=== PATIENT | female | born 1960 | race Caucasian/White ===

== ENCOUNTER 2018-12-22 17:35 | Emergency (ER) | payer MEDICAID ==
[~2018-12-22] VITALS: Ht 160 cm; Wt 60.9 kg
[2018-12-22 18:11] LABS: GLUCOSE,POINT OF CARE 157 MG/DL (70-110)
[2018-12-22] MEDS ORDERED: SODIUM CHLORIDE 0.9% 1,000 ML IV ONE (18:45)
[2018-12-22] MEDS ORDERED: ACETAMINOPHEN 500 MG TABLET PO ONE (18:45)
[2018-12-22 19:03] LABS: BASOPHILS % (AUTO) 0.8 % (0.0-2.0); EOSINOPHILS % (AUTO) 2.8 % (1.0-6.0); HEMATOCRIT 27.7 % (36-46); HEMOGLOBIN 9.5 g/dL (12.0-16.0); LYMPHOCYTES # (AUTO) 2.2 K/uL (1.0-4.8); LYMPHOCYTES % (AUTO) 28.4 % (22.0-44.0); MEAN CORPUSCULAR HGB CONC 34.2 G/dL (31.0-37.0); MEAN CORPUSCULAR VOLUME 91 fL (80-100); MONOCYTES # (AUTO) 0.7 K/uL (0.1-1.0); MONOCYTES % (AUTO) 8.4 % (2.0-9.0); NEUTROPHILS # (AUTO) 4.7 K/uL (1.8-7.7); NEUTROPHILS % (AUTO) 59.6 % (40.0-70.0); PLATELET COUNT (AUTO) 268 K/uL (150-450); RED BLOOD CELL COUNT(AUTO) 3.06 MIL/uL (4.00-5.20); RED CELL DISTRIBUTION WIDTH 13.1 % (11.5-14.5)
[2018-12-22 19:19] LABS: CALCIUM, TOTAL 8.8 mg/dL (8.8-10.5); CREATININE 1.82 mg/dL (0.60-1.30); POTASSIUM 5.3 mmol/L (3.5-5.1)
[2018-12-22 19:27] LABS: ALBUMIN 2.7 g/dL (3.4-5.0); BILIRUBIN,TOTAL 0.3 mg/dL (0.1-1.0); TOTAL PROTEIN, SERUM 6.7 g/dL (6.4-8.2)
[2018-12-22 19:33] LABS: APPEARANCE,URINE CLEAR (CLEAR); BILIRUBIN,URINE NEGATIVE (NEGATIVE); GLUCOSE, URINE (UA) NEGATIVE (NEGATIVE); KETONES,URINE NEGATIVE (NEGATIVE); LEUKOCYTE ESTERASE ,URINE TRACE (NEGATIVE); NITRATE,URINE NEGATIVE (NEGATIVE); OCCULT BLOOD,URINE MODERATE (NEGATIVE); PROTEIN,URINE SEE CONFIRM (NEGATIVE); UROBILINOGEN,URINE 0.2 mg/dL (<=1.0)
[2018-12-22] MEDS ORDERED: IOVERSOL 350 MG/ML 150 ML VIAL ONE (19:44)
[2018-12-22] MEDS ORDERED: SODIUM CHLORIDE 0.9% 100 ML ONE (19:45)
[2018-12-22 20:11] LABS: SULFOSALICYLIC ACID,URINE 4+ (Negative)
[2018-12-22 20:12] LABS: BACTERIA,URINE None Seen /HPF (None Seen); SQUAMOUS EPITHELIAL CELL,UR Few /LPF (None Seen)
[2018-12-22 21:15] VITALS: BP 157/82
== END 2018-12-22 21:47 | disposition home or self-care (01) ==
LOC: EMS 17:36
DX: N28.9 Disorder of kidney and ureter, unspecified (principal); G47.00 Insomnia, unspecified; F17.210 Nicotine dependence, cigarettes, uncomplicated; E11.9 Type 2 diabetes mellitus without complications
CPT/HCPCS: 36415; 71260; 74177; 76700; 80053; 81001; 82962; 83690; 83880; 84484; 85025; 93005; 99285; 99406; J7030; J7050; Q9967; 72193; 74160

== ENCOUNTER 2021-05-06 19:47 | Emergency (ER) | payer MEDICAID ==
[~2021-05-06] VITALS: Ht 160 cm; Wt 77.3 kg
[2021-05-06 20:15] LABS: COVID AG,FIA SOURCE NASOPHARYNGEAL
[2021-05-06 21:02] LABS: BASOPHILS % (AUTO) 0.6 % (0.0-2.0); EOSINOPHILS % (AUTO) 5.9 % (1.0-6.0); HEMATOCRIT 33.7 % (36-46); HEMOGLOBIN 11.4 g/dL (12.0-16.0); LYMPHOCYTES % (AUTO) 24.5 % (22.0-44.0); MEAN CORPUSCULAR HEMOGLOBIN 29.8 pg (26.0-34.0); MEAN CORPUSCULAR VOLUME 88 fL (80-100); MONOCYTES # (AUTO) 0.9 K/uL (0.1-1.0); MONOCYTES % (AUTO) 10.7 % (2.0-9.0); NEUTROPHILS # (AUTO) 4.7 K/uL (1.8-7.7); NEUTROPHILS % (AUTO) 58.3 % (40.0-70.0); PLATELET COUNT (AUTO) 251 K/uL (150-450); RED BLOOD CELL COUNT(AUTO) 3.83 MIL/uL (4.00-5.20)
[2021-05-06 21:11] LABS: GLUCOMETER DEV NAME(LOC) ERT.5; GLUCOSE,POINT OF CARE 192 MG/DL (70-110)
[2021-05-06 21:15] LABS: CALCIUM, TOTAL 8.1 mg/dL (8.8-10.5); CREATININE 11.14 mg/dL (0.60-1.30); POTASSIUM 3.2 mmol/L (3.5-5.1)
[2021-05-06 21:21] LABS: ALBUMIN 3.1 g/dL (3.4-5.0); BILIRUBIN,TOTAL 0.7 mg/dL (0.1-1.0); TOTAL PROTEIN, SERUM 8.1 g/dL (6.4-8.2)
[2021-05-06 21:44] VITALS: BP 145/92
[2021-05-06] MEDS ORDERED: KETOROLAC TROMETHAMINE 30 MG/ML VIAL IVP ONE (22:00)
[2021-05-06] MEDS ORDERED: SODIUM CHLORIDE 0.9% 1,000 ML IV ONE (22:00)
[2021-05-06] MEDS ORDERED: ONDANSETRON HCL 4 MG/2 ML VIAL IVP ONE (22:00)
[2021-05-06] MEDS ORDERED: ONDANSETRON HCL 4 MG TABLET PO ONE (22:30)
[2021-05-06] MEDS ORDERED: ACETAMINOPHEN 500 MG TABLET PO ONE (22:30)
[2021-05-06] MEDS ORDERED: ONDA-104 PO (23:44)
== END 2021-05-07 00:07 | disposition home or self-care (01) ==
LOC: EMS 19:48
DX: U07.1 COVID-19 (principal); E11.9 Type 2 diabetes mellitus without complications; Z79.899 Other long term (current) drug therapy
CPT/HCPCS: 36415; 71045; 80053; 82962; 83690; 84484; 85025; 87426; 93005; 99285; C9803; Q0162; U0003

== ENCOUNTER 2021-05-19 15:02 | Inpatient (IN) | payer MEDICAID ==
[~2021-05-19] VITALS: Ht 160 cm; Wt 94.0 kg
[~2021-05-19 15:02] MED LIST: ONDA-104 PO
[2021-05-19 16:05] LABS: COVID AG,FIA SOURCE NASOPHARYNGEAL
[2021-05-19 16:12] LABS: BASOPHILS % (AUTO) 0.2 % (0.0-2.0); EOSINOPHILS % (AUTO) 2.9 % (1.0-6.0); HEMOGLOBIN 10.1 g/dL (12.0-16.0); LYMPHOCYTES # (AUTO) 4.3 K/uL (1.0-4.8); LYMPHOCYTES % (AUTO) 28.9 % (22.0-44.0); MEAN CORPUSCULAR HGB CONC 33.8 G/dL (31.0-37.0); MEAN CORPUSCULAR VOLUME 86 fL (80-100); MONOCYTES # (AUTO) 1.2 K/uL (0.1-1.0); MONOCYTES % (AUTO) 8.2 % (2.0-9.0); NEUTROPHILS # (AUTO) 8.9 K/uL (1.8-7.7); NEUTROPHILS % (AUTO) 59.8 % (40.0-70.0); PLATELET COUNT (AUTO) 419 K/uL (150-450); RED CELL DISTRIBUTION WIDTH 15.9 % (11.5-14.5)
[2021-05-19 16:27] LABS: CALCIUM, TOTAL 7.8 mg/dL (8.8-10.5); CREATININE 8.37 mg/dL (0.60-1.30); MAGNESIUM 3.1 mg/dL (1.80-2.40); POTASSIUM 3.8 mmol/L (3.5-5.1)
[2021-05-19] MEDS ORDERED: SODIUM CHLORIDE 0.9% 500 ML IV ONE (17:00)
[2021-05-19] MEDS ORDERED: ONDANSETRON HCL 4 MG/2 ML VIAL IVP PRN ×2 (17:15→18:15)
[2021-05-19] MEDS ORDERED: ACETAMINOPHEN 325 MG TABLET PO PRN (17:15)
[2021-05-19] MEDS ORDERED: OxyCODONE HCL/ACETAMINOPHEN 5-325 MG TABLET PO PRN (18:15)
[2021-05-19] MEDS ORDERED: DEXTROSE 50%-WATER 25 GM/50 ML SYRINGE IVP PRN (18:15)
[2021-05-19 18:19] LABS: APPEARANCE,URINE CLEAR (CLEAR); BILIRUBIN,URINE NEGATIVE (NEGATIVE); GLUCOSE, URINE (UA) 100 mg/dL (NEGATIVE); KETONES,URINE NEGATIVE (NEGATIVE); LEUKOCYTE ESTERASE ,URINE NEGATIVE (NEGATIVE); NITRATE,URINE NEGATIVE (NEGATIVE); OCCULT BLOOD,URINE NEGATIVE (NEGATIVE); PH,URINE 6.5 (5.0-8.0); PROTEIN,URINE SEE CONFIRM (NEGATIVE); UROBILINOGEN,URINE 0.2 mg/dL (<=1.0)
[2021-05-19 18:30] LABS: BACTERIA,URINE None Seen /HPF (None Seen); RBC,URINE None Seen /HPF (0-2); SQUAMOUS EPITHELIAL CELL,UR Few /LPF (None Seen); SULFOSALICYLIC ACID,URINE 3+ (Negative); WBC,URINE None Seen /HPF (0-5)
[2021-05-19] MEDS: DOCUSATE SODIUM 100 MG CAPSULE PO SCH (21:14)
[2021-05-19] MEDS: HEPARIN SODIUM,PORCINE 5,000 UNITS/ML VIAL SQ SCH (21:14)
[2021-05-19] MEDS: VITAMIN B COMP/VIT C/FOLIC ACID CAPSULE PO SCH (21:14)
[2021-05-19 22:40] VITALS: BP 186/101
[2021-05-19] MEDS: ACETAMINOPHEN 325 MG TABLET PO PRN (23:17)
[2021-05-19 23:31] LABS: GLUCOMETER DEV NAME(LOC) 5S.2B; GLUCOSE,POINT OF CARE 136 MG/DL (70-110)
[2021-05-20] VITALS (9 sets, daily range): BP systolic 132–186; BP diastolic 71–101
[2021-05-20 06:21] LABS: GLUCOMETER DEV NAME(LOC) 5S.2B; GLUCOSE,POINT OF CARE 185 MG/DL (70-110)
[2021-05-20 06:58] LABS: SPECIMENTYPE,BODY FLUID PERITONEAL
[2021-05-20 07:29] LABS: BASOPHILS % (AUTO) 0.3 % (0.0-2.0); EOSINOPHILS % (AUTO) 2.7 % (1.0-6.0); HEMATOCRIT 30.3 % (36-46); HEMOGLOBIN 10.4 g/dL (12.0-16.0); LYMPHOCYTES # (AUTO) 4.4 K/uL (1.0-4.8); LYMPHOCYTES % (AUTO) 40.1 % (22.0-44.0); MEAN CORPUSCULAR HEMOGLOBIN 29.4 pg (26.0-34.0); MEAN CORPUSCULAR HGB CONC 34.5 G/dL (31.0-37.0); MEAN CORPUSCULAR VOLUME 85 fL (80-100); MONOCYTES # (AUTO) 0.8 K/uL (0.1-1.0); MONOCYTES % (AUTO) 7.5 % (2.0-9.0); NEUTROPHILS # (AUTO) 5.4 K/uL (1.8-7.7); NEUTROPHILS % (AUTO) 49.4 % (40.0-70.0); PLATELET COUNT (AUTO) 422 K/uL (150-450); RED BLOOD CELL COUNT(AUTO) 3.55 MIL/uL (4.00-5.20); RED CELL DISTRIBUTION WIDTH 16.2 % (11.5-14.5)
[2021-05-20 07:41] LABS: CALCIUM, TOTAL 7.9 mg/dL (8.8-10.5); CREATININE 7.59 mg/dL (0.60-1.30); POTASSIUM 3.9 mmol/L (3.5-5.1)
[2021-05-20 07:42] LABS: MAGNESIUM 2.9 mg/dL (1.80-2.40); PHOSPHORUS 5.4 mg/dL (2.5-4.9)
[2021-05-20] MEDS: HEPARIN SODIUM,PORCINE 5,000 UNITS/ML VIAL SQ SCH ×2 (08:39→20:59)
[2021-05-20] MEDS: VITAMIN B COMP/VIT C/FOLIC ACID CAPSULE PO SCH (08:39)
[2021-05-20] MEDS: DOCUSATE SODIUM 100 MG CAPSULE PO SCH ×2 (08:39→20:57)
[2021-05-20] MEDS: FAMOTIDINE 20 MG TABLET PO SCH (08:39)
[2021-05-20] MEDS: INSULIN LISPRO 100 UNITS/ML SQ PRN ×2 (11:18→17:04)
[2021-05-20 12:31] LABS: GLUCOMETER DEV NAME(LOC) 5S.2B; GLUCOSE,POINT OF CARE 276 MG/DL (70-110)
[2021-05-20 13:15] LABS: APPEARANCE,SPUN,BODY FLUID CLEAR (CLEAR); APPEARANCE,UNSPUN,BODY FLUID CLEAR (CLEAR)
[2021-05-20 13:16] LABS: BASOPHILS,BODY FLUID 0 %; COLOR,BODY FLUID COLORLESS (LT YELLOW); EOSINOPHILS,BF (ANAL) 0 %; LYMPHOCYTES,BODY FLUID 40 %; MONOCYTES,BODY FLUID 10 %; NEUTROPHILS,BODY FLUID 50 %; TOTAL VOLUME,BODY FLUID 10 mL; WBC, BODY FLUID 1 /cu. mm.
[2021-05-20 20:37] LABS: GLUCOMETER DEV NAME(LOC) 5S.2B; GLUCOSE,POINT OF CARE 217 MG/DL (70-110)
[2021-05-20] MEDS: ACETAMINOPHEN 325 MG TABLET PO PRN (21:08)
[2021-05-21 03:30] VITALS: BP 148/82
[2021-05-21 04:56] LABS: GLUCOMETER DEV NAME(LOC) 5S.2B; GLUCOSE,POINT OF CARE 269 MG/DL (70-110)
[2021-05-21] MEDS: HEPARIN SODIUM,PORCINE 5,000 UNITS/ML VIAL SQ SCH (08:51)
[2021-05-21] MEDS: VITAMIN B COMP/VIT C/FOLIC ACID CAPSULE PO SCH (08:51)
[2021-05-21] MEDS: FAMOTIDINE 20 MG TABLET PO SCH (08:51)
[2021-05-21] MEDS: DOCUSATE SODIUM 100 MG CAPSULE PO SCH (08:51)
[2021-05-21 11:16] VITALS: BP_SYST 151; BP_SYST 84; BP_DIAS 84
[2021-05-21 11:49] VITALS: BP 156/91
[2021-05-21] MEDS: INSULIN LISPRO 100 UNITS/ML SQ PRN (11:53)
[2021-05-21 15:30] VITALS: BP 157/73
[2021-05-21 20:11] LABS: GLUCOMETER DEV NAME(LOC) 5S.1; GLUCOSE,POINT OF CARE 354 MG/DL (70-110)
[2021-05-21 20:12] LABS: GLUCOMETER DEV NAME(LOC) 5S.1; GLUCOSE,POINT OF CARE 363 MG/DL (70-110)
== END 2021-05-21 17:50 | disposition home or self-care (01) | DRG 470 ==
LOC: EMS 15:02 → 5S 18:02
PROVIDERS: ADMIT Internal Medicine; ATTEND Internal Medicine
DX: I12.0 Hypertensive chronic kidney disease with stage 5 chronic kidney disease or end stage renal disease (principal); N18.6 End stage renal disease; E11.22 Type 2 diabetes mellitus with diabetic chronic kidney disease; D63.8 Anemia in other chronic diseases classified elsewhere; E83.51 Hypocalcemia; D72.829 Elevated white blood cell count, unspecified; E11.51 Type 2 diabetes mellitus with diabetic peripheral angiopathy without gangrene; R53.1 Weakness; E66.9 Obesity, unspecified; E78.5 Hyperlipidemia, unspecified; Z86.16 Personal history of COVID-19; Z99.2 Dependence on renal dialysis; Z79.4 Long term (current) use of insulin; Z68.36 Body mass index [BMI] 36.0-36.9, adult
CPT/HCPCS: 51701; 71045; 80048; 81001; 81002; 82962; 83735; 84100; 85025; 87075; 87205; 89051; 90945; 93005; 93925; 99285; G0378; J1644; J2405; 36415-L1; 36415-TC; 87070

== ENCOUNTER 2022-01-06 07:29 | Emergency (ER) | payer MEDICAID ==
[~2022-01-06] VITALS: Ht 160 cm; Wt 79.5 kg
[2022-01-06 08:02] LABS: BASOPHILS % (AUTO) 0.2 % (0.0-2.0); EOSINOPHILS % (AUTO) 0.4 % (1.0-6.0); LYMPHOCYTES # (AUTO) 0.5 K/uL (1.0-4.8); LYMPHOCYTES % (AUTO) 4.2 % (22.0-44.0); MEAN CORPUSCULAR HEMOGLOBIN 30.1 pg (26.0-34.0); MEAN CORPUSCULAR HGB CONC 32.5 G/dL (31.0-37.0); MEAN CORPUSCULAR VOLUME 93 fL (80-100); MONOCYTES # (AUTO) 0.1 K/uL (0.1-1.0); MONOCYTES % (AUTO) 0.4 % (2.0-9.0); NEUTROPHILS # (AUTO) 11.4 K/uL (1.8-7.7); PLATELET COUNT (AUTO) 252 K/uL (150-450); RED BLOOD CELL COUNT(AUTO) 2.17 MIL/uL (4.00-5.20); RED CELL DISTRIBUTION WIDTH 17.3 % (11.5-14.5)
[2022-01-06] MEDS ORDERED: LANT500T7 PO (08:09)
[2022-01-06] MEDS ORDERED: B,C/1TAB PO (08:09)
[2022-01-06] MEDS ORDERED: SEVE0.8P6 PO (08:09)
[2022-01-06] MEDS ORDERED: HYDR50TA36 PO (08:09)
[2022-01-06] MEDS ORDERED: SODI650T33 PO (08:09)
[2022-01-06] MEDS ORDERED: ATOR20TA86 PO (08:09)
[2022-01-06] MEDS ORDERED: PANT-31 PO (08:09)
[2022-01-06] MEDS ORDERED: LORA10TA7 PO (08:09)
[2022-01-06] MEDS ORDERED: LINA5TAB PO (08:09)
[2022-01-06] MEDS ORDERED: GABA-1216 PO (08:09)
[2022-01-06] MEDS ORDERED: FURO80 PO (08:09)
[2022-01-06] MEDS ORDERED: NIFE90TA91 PO (08:09)
[2022-01-06] MEDS ORDERED: METO5TAB95 PO (08:09)
[2022-01-06] MEDS ORDERED: INSU100V SQ (08:10)
[2022-01-06] MEDS ORDERED: INSU100V39 SQ (08:10)
[2022-01-06 08:22] LABS: CALCIUM, TOTAL 8.1 mg/dL (8.8-10.5); CREATININE 13.14 mg/dL (0.60-1.30); POTASSIUM 4.1 mmol/L (3.5-5.1)
[2022-01-06 08:26] LABS: ALBUMIN 2.8 g/dL (3.4-5.0); BILIRUBIN,TOTAL 0.4 mg/dL (0.1-1.0); TOTAL PROTEIN, SERUM 6.8 g/dL (6.4-8.2)
[2022-01-06 08:29] LABS: HEMATOCRIT 20.1 % (36-46); HEMOGLOBIN 6.5 g/dL (12.0-16.0)
[2022-01-06 08:30] LABS: NEUTROPHILS % (AUTO) 94.8 % (40.0-70.0)
[2022-01-06] MEDS ORDERED: INSU3INS3 SQ (11:10)
[2022-01-06] MEDS ORDERED: ATRO5DRO OD (11:10)
[2022-01-06] MEDS ORDERED: SEVE800T17 PO (11:10)
[2022-01-06] MEDS ORDERED: SEVE800T7 PO (11:10)
[2022-01-06] MEDS ORDERED: ACET-66 PO (11:10)
[2022-01-06 13:45] LABS: APPEARANCE,URINE HAZY (CLEAR); BILIRUBIN,URINE NEGATIVE (NEGATIVE); GLUCOSE, URINE (UA) 150-200 mg/dL (NEGATIVE); KETONES,URINE NEGATIVE (NEGATIVE); LEUKOCYTE ESTERASE ,URINE LARGE (NEGATIVE); NITRATE,URINE NEGATIVE (NEGATIVE); OCCULT BLOOD,URINE TRACE (NEGATIVE); PROTEIN,URINE 300-600,SEE CONFIRM mg/dL (NEGATIVE); SPECIFIC GRAVITIY, URINE 1.014 (1.003-1.030); UROBILINOGEN,URINE <=1.0 mg/dL (<=1.0)
[2022-01-06 13:50] VITALS: BP 144/74
[2022-01-06 13:55] LABS: SULFOSALICYLIC ACID,URINE 3+ (Negative)
[2022-01-06 13:56] LABS: BACTERIA,URINE Many /HPF (None Seen); RBC,URINE 0-2 /HPF (0-2); SQUAMOUS EPITHELIAL CELL,UR Few /LPF (None Seen); WBC,URINE 51-100 /HPF (0-5)
[2022-01-06 14:05] VITALS: BP 147/71
[2022-01-06] MEDS ORDERED: CIPR500T10 PO (14:11)
[2022-01-06] MEDS: CefTRIAXone SODIUM 1 GM/VIAL IM ONE (14:15)
[2022-01-06] MEDS: LIDOCAINE/PF 1% 2 ML VIAL IM ONE (14:16)
[2022-01-06 14:20] VITALS: BP 146/79
[2022-01-06] MEDS ORDERED: PERCT PO (14:29)
[2022-01-06] MEDS: ACETAMINOPHEN 500 MG TABLET PO ONE (14:55)
[2022-01-06 15:20] VITALS: BP 126/68
[2022-01-06 16:34] VITALS: BP 136/78
== END 2022-01-06 16:44 | disposition home or self-care (01) ==
LOC: EMS 07:54
DX: D64.9 Anemia, unspecified (principal); N39.0 Urinary tract infection, site not specified; E11.9 Type 2 diabetes mellitus without complications; Z99.2 Dependence on renal dialysis
CPT/HCPCS: 99285; 36430; 80053; 81001; 82962; 84702; 85025; 86850; 86900; 86901; 86923; 36415; 87086; 96372; 81002; P9016; J0696; J3490